=== PATIENT | female | born 1995 | race Caucasian/White ===

== ENCOUNTER 2020-11-13 07:55 | Inpatient (IN) ==
[2020-11-13] MEDS ORDERED: OXYTOCIN 30 UNITS/500 ML BAG IV PRN ×3 (08:32→22:20)
[2020-11-13] MEDS: LACTATED RINGER'S 1,000 ML IV PRN ×2 (09:15→14:17)
--- NOTE | 2020-11-13 13:08 | History & Physical Report ---
Date of Service November 13, 2020 Assessment & Plan (1) Encounter for induction of labor: 25 y/o at 40w0d who presents for eIOL for term . A pos. RI. GBS neg. GDM on insulin during . - category 1 tracing - s/p cervical ripening colunga on 11/12/20 - induction via pitocin, 2+2 - NPO. LR 125ml/hr - plans to use epidural. anesthesia consulted - continue routine care (2) Insulin controlled gestational diabetes mellitus (GDM) during : - POC glucose 86 this admission, acceptable - BSG q1h ordered - hold home regimen: 10u NPH qhs and SSI Aspart (8u w/ carb-containing meals, max TDD 30u/day) during day. Admission and Anticipated Discharge Date Admission Date: November 13, 2020 History of Present Illness Primary Care Provider: Faheem Arreola Marlena Almanza is a 25 y/o at 40w0d WGA w/ LANIE of 11/13/20 (via LMP) who presents for eIOL for term . s/p colunga cervical ripening on 11/12/20. is complicated by GDM (on insulin). Patient is also on Zoloft 100mg for anxiety/depression. + contractions; + movement; - fluid loss; - bloody show Had regular appointments with OB. Labs: (04/10/20) Blood type: A pos Antibody screen: neg Hg: pending (today) Hct: pending (today) WBC: pending (today) Plt: pending (today) Rubella: immune RPR: nonreactive Gonorrhea: not detected Chlamydia: not detected HIV: neg HbSAg: neg GBS: neg Labs Reviewed: first panorama--no result second panorama-low risk declined afp GDM w/ 28wk glucola (glucose dose 75g. 200H (70-179) at 1 hour. 154H (70-152) at 2 hours. 08/28/20) Allergies Allergy/AdvReac Type Severity Reaction Status Date / Time Penicillins Allergy Unknown Verified 11/10/20 16:14 bee venom protein (honey bee) AdvReac Swelling Verified 11/12/20 21:14 of Lip/Tongue/Throat Home Medications Medication Instructions Recorded Confirmed Type prenat.vits,jacqueline,[id number] 1 tab PO DAILY 04/03/20 11/13/20 History sertraline 100 mg tablet 100 mg PO DAILY 04/03/20 11/13/20 History acetone (urine) test #50 09/01/20 11/10/20 Rx blood-glucose meter #1 09/01/20 11/10/20 Rx lancets 33 gauge #150 ea 09/01/20 11/10/20 Rx insulin aspart U-100 100 unit/mL See Rx Instructions SUBCUT BID #15 09/08/20 11/13/20 Rx (3 mL) subcutaneous pen ml pen needle, diabetic 32 gauge x #150 ea 09/08/20 11/10/20 Rx 5/32" insulin NPH isoph U-100 human 100 10 unit SUBCUT HS #10 ml 09/12/20 11/13/20 Rx unit/mL subcutaneous suspension insulin syringe-needle U-100 0.3 #100 09/12/20 11/10/20 Rx mL 30 gauge x 1/2" blood sugar diagnostic #150 10/24/20 11/10/20 Rx ferrous sulfate [Iron (ferrous 325 mg PO DAILY 11/13/20 11/13/20 History sulfate)] Patient History Medical History Depression History of broken collarbone History of chicken pox History of fracture of fibula History of fracture of tibia Surgical History No history of previous surgery Family History (Updated 11/13/20 @ 13:16 by Tariq Escoto MD) Grandmother (Paternal) Colorectal cancer Grandfather (Paternal) Lung cancer Mother Endometriosis Sister Polycystic ovary syndrome Father Hypertension Diabetes Denies family history of Ovarian cancer Breast cancer Social History Smoking Status: Never smoker Second Hand Exposure: No; Do You Dip or Chew Tobacco: No; Hx Alcohol Use: No Hx Substance Use: No Preferred Language: Portuguese Communication Ability: Effective Fibrous Wallboard Inspector Required: No Beliefs That Will Affect Care: None marital status: marital status details: Inderjit Almanza (28) [phone] Current Living Situation: Spouse Current Living Situation Comment: Lives with and 2 dogs. current occupational status: employed current occupation: [employer] Other Information That Helps Us Care for You: No Feels Safe at Home: Yes Safety Concerns: Feels Safe At This Time Assistive Devices: None Review of Systems Denies fever, chills, sweats Denies shortness of breath, difficulty breathing, chest pain Denies breast pain. Denies dysuria. Denies headache or changes in vision. Denies nausea/vomiting. Denies numbness, tingling, weakness. Denies calf pain. Denies mood complaints. Physical Exam Physical Exam: General: Alert, oriented. No acute distress. Cardiac: Regular rate and rhythm, no murmurs/rubs/gallops. Respiratory: Clear to auscultation bilaterally, no wheezes/rales/rhonchi. No increased work of breathing. Symmetrical chest rise. No respiratory distress. Abdomen: Gravid Pelvic: Dilation 3.5cm; Effacement 75%; Station -[address] Andrade at 0845. Lower Extremities: Trace bilateral LE edema. No deep calf pain. Ochoa's negative bilaterally Results & Data ([facility]) Vital Signs (Past 12 Hours) Vital Signs Temp Pulse Resp BP 11/13/20 11:03 83 121/77 11/13/20 10:49 88 117/74 11/13/20 09:41 100 H 121/75 11/13/20 09:38 91 H 134/82 11/13/20 09:16 37.3 C 92 H 18 137/58 L 11/13/20 08:11 92 H 135/78 Code Status & VTE Plan Code Status full VTE Prophylaxis Plan VTE Prophylaxis will be ordered: No Monitoring External Monitor External FHT and external uterine monitors used; Category 1 tracing; moderate FHT variability. No late or variable decelerations. Tocodynamometer External toco: contractions q 2-3min. Supervising Physician Co-Signing Physician Notes Resident Physician Supervision Note: I interviewed and examined the patient. Discussed with Dr. Escoto and agree with findings and plan as documented in the note. Any exceptions or clarifications are listed here: with iup at 40 weeks. Induction for insulin requiring gdm. Last us showed efw >98% and AC>98%. Patient originally had induction for closer to 39 weeks but then her got covid and pushed back so he could be at the delivery. She is covid neg. Plan pitocin induction, epidural, arom. Discussed will not instrument this baby. Fetus category one. Documented By: Juliet Andrade MD, FACOG Resident Activity Tracking Resident Involvement: Resident Care Provided Care Provided: OB Delivery
[2020-11-13] MEDS ORDERED: ePHEDrine sulfate 50 MG/ML AMP ONE (13:59)
[2020-11-13] MEDS ORDERED: SODIUM CHLORIDE 0.9% INJ 10 ML VIAL ONE (14:00)
[2020-11-13] MEDS ORDERED: fentaNYL citrate 100 MCG/2 ML VIAL ONE (14:00)
[2020-11-13] MEDS ORDERED: BUPIVACAINE 0.25% 30 ML VIAL ONE (14:00)
[2020-11-13] MEDS ORDERED: fentaNYL 2MCG/ML ROPIVACAINE 1.25MG/ML 100 ML BAG EPI ONE (14:01)
--- NOTE | 2020-11-13 14:20 | Labor Progress Brief Note ---
Date of Service November 13, 2020 Subjective noting pain with contractions Assessment & Plan (1) Encounter for induction of labor: Admission and Anticipated Discharge Date Admission Date: November 13, 2020 Plan epidural, then arom . fetus reassuring. Physical Exam Constitutional: WD/WN, vitals as above Psychiatric: A+Ox3, euthymic affect Genitourinary: cx--deferred toco--q2min, pit at 6 efm--category one Results & Data ([facility]) Vital Signs (Past 12 Hours) Vital Signs Temp Pulse Resp BP 11/13/20 13:51 88 110/58 L 11/13/20 11:03 83 121/77 11/13/20 10:49 88 117/74 11/13/20 09:41 100 H 121/75 11/13/20 09:38 91 H 134/82 11/13/20 09:16 37.3 C 92 H 18 137/58 L 11/13/20 08:11 92 H 135/78 Coding Level of Care Code None Diagnoses Encounter for induction of labor Z34.90
[2020-11-13] MEDS ORDERED: NALOXONE HCL 0.4 MG/1 ML VIAL/CARP IV PRN (14:24)
[2020-11-13] MEDS ORDERED: ONDANSETRON INJ 2 MG/ML 2 ML VIAL IV PRN (14:24)
[2020-11-13] MEDS ORDERED: fentaNYL 2MCG/ML ROPIVACAINE 1.25MG/ML 100 ML BAG EPI PRN (14:24)
[2020-11-13] MEDS ORDERED: diphenhydrAMINE 50 MG/ML VIAL IV PRN (14:24)
[2020-11-13] MEDS ORDERED: NALOXONE HCL 1 MG in SODIUM CHLORIDE 0.9% 1000ML 1,000 ML IV PRN (14:24)
[2020-11-13] MEDS ORDERED: ePHEDrine sulfate 50 MG/ML AMP IV PRN (14:24)
--- NOTE | 2020-11-13 14:26 | Anesthesiology Consultation ---
Date of Service November 13, 2020 Assessment & Plan ASA ASA2 Proposed Anesthesia Anesthesia Type: Labor Epidural Risk / Benefits Reviewed With: PT / POA / Parent / Guardian, Accepts Plan and Informed Consent Obtained History Height/Weight Height: 5 ft 9 in Weight: 108.862 kg Allergies Allergy/AdvReac Type Severity Reaction Status Date / Time Penicillins Allergy Unknown Verified 11/10/20 16:14 bee venom protein (honey bee) AdvReac Swelling Verified 11/12/20 21:14 of Lip/Tongue/Throat Medications Home Medications Medication Instructions Recorded Confirmed Last Taken prenat.vits,jacqueline,[id number] 1 tab PO DAILY 04/03/20 11/13/20 11/12/20 08:00 sertraline 100 mg tablet 100 mg PO DAILY 04/03/20 11/13/20 11/12/20 08:00 acetone (urine) test #50 ea 09/01/20 11/10/20 Unknown blood-glucose meter #1 ea 09/01/20 11/10/20 Unknown lancets 33 gauge #150 ea 09/01/20 11/10/20 Unknown insulin aspart U-100 100 unit/mL See Rx Instructions SUBCUT BID #15 09/08/20 11/13/20 11/12/20 18:00 (3 mL) subcutaneous pen ml pen needle, diabetic 32 gauge x #150 ea 09/08/20 11/10/20 Unknown " insulin NPH isoph U-100 human 100 10 unit SUBCUT HS #10 ml 09/12/20 11/13/20 11/11/20 21:00 unit/mL subcutaneous suspension insulin syringe-needle U-100 0.3 #100 ea 09/12/20 11/10/20 Unknown mL 30 gauge x 1/2" blood sugar diagnostic #150 ea 10/24/20 11/10/20 Unknown ferrous sulfate [Iron (ferrous 325 mg PO DAILY 11/13/20 11/13/20 11/12/20 08:00 sulfate)] Active Medications Generic Name Dose Route Start Last Admin Trade Name Freq PRN Reason Stop Dose Admin Lactated Ringer's 1,000 mls @ 125 mls/hr 11/13/20 08:32 11/13/20 14:27 Lr IV 11/15/20 08:31 125 mls/hr .Q8H PRN Titration L&D Protocol Protocol Oxytocin 30 units in 500 mls @ 6 mls/hr 11/13/20 08:46 11/13/20 10:48 Pitocin IV 11/15/20 08:45 0.36 units/hr .Q24H PRN 6 mls/hr Labor Induction/Augmentation Titration Protocol 0.36 UNITS/HR Past Medical History Medical History Depression History of broken collarbone History of chicken pox History of fracture of fibula History of fracture of tibia Exercise / Class Metabolic Activity II 4-5 Yardwork/Stairs/Walk up hill Past Family History Family History Grandmother (Paternal) Colorectal cancer Grandfather (Paternal) Lung cancer Mother Endometriosis Sister Polycystic ovary syndrome Father Hypertension Diabetes Denies family history of Ovarian cancer Breast cancer Past Surgical History Surgical History No history of previous surgery Past Anesthesia History No Hx of Anesthesia Complications and No Family Hx of Anesthesia Complications History of PONV No Hx of PONV and No Hx of Motion Sickness Social History Smoking Status: Never smoker Do You Dip or Chew Tobacco: No Hx Alcohol Use: No Hx Substance Use: No substance use type: does not use Review of Systems denies fever/cough/ colds/ chest pain/ SOB/ ROLANDO denies ROLANDO Physical Exam Vital Signs Last Vital Signs Temp 37.3 C 11/13/20 09:16 Pulse 98 H 11/13/20 15:34 Resp 18 11/13/20 09:16 BP 121/77 11/13/20 15:34 Pulse Ox 96 11/13/20 15:34 ENMT Mouth: no TMJ abnormality and no dentition abnormality Thyromental Distance: > or= 3.5 Finger Breadths Mallampati Class: II Neck neck extension not limited Respiratory normal respiratory effort; no respiratory distress Auscultation: lungs clear to auscultation bilaterally Cardiovascular Rate/Rhythm: regular rate and regular rhythm Neurologic moves all extremities Psychiatric Orientation: alert and oriented x 3 Testing Laboratory Results 11/13/20 08:51 Blood Type A Positive 11/13/20 08:51 Antibody Screen NEGATIVE 11/13/20 08:51 11/13/20 11/13/20 11/13/20 15:08 12:42 09:47 POC Glucose 80 80 83
[2020-11-13 15:11] LABS: Basophils # (auto) 0.01 K/uL (0-0.2); Basophils % (auto) 0.1 %; Eosinophils # (auto) 0.04 K/uL (0-0.5); Eosinophils % (auto) 0.3 %; Hematocrit (blood only) 38.2 % (37-47); Hemoglobin 13.2 g/dL (12.0-16.0); Immature Granulocytes # (auto) 0.09 K/uL (0.00-0.02); Immature Granulocytes % (auto) 0.7 %; Lymphocytes # (auto) 1.63 K/uL (1.2-3.4); Lymphocytes % (auto) 12.9 %; Mean Corpuscular Hemoglobin 30.9 pg (25-34); Mean Corpuscular Hgb Conc 34.6 g/dL (32-36); Mean Corpuscular Volume 89.5 fL (80-100); Monocytes # (auto) 0.92 K/uL (0.11-0.59); Monocytes % (auto) 7.3 %; Neutrophils % (auto) 78.7 %; Platelet Count 174 K/uL (130-400); RDW Coefficient of Variation 16.9 % (11.5-14.5); RDW Standard Deviation 55.2 fL (36.4-46.3); Red Blood Count 4.27 M/uL (4.2-5.4); White Blood Count 12.59 K/uL (4.8-10.8)
--- NOTE | 2020-11-13 16:59 | Labor Progress Brief Note ---
Date of Service November 13, 2020 Subjective comfortable after epidural Assessment & Plan (1) Encounter for induction of labor: Admission and Anticipated Discharge Date Admission Date: November 13, 2020 Continue current mangement. Peds aware of mec. Category one strip. Physical Exam Constitutional: WD/WN, vitals as above Psychiatric: A+Ox3, euthymic affect Genitourinary: cx--5/90/-2 arom--green mec, copious toco--q2-3min, pit at 6 efm--125 with mod variablity, accels present, no decels Results & Data ([facility]) Vital Signs (Past 12 Hours) Vital Signs Temp Pulse Resp BP Pulse Ox 11/13/20 16:54 84 97 11/13/20 16:49 91 H 97 11/13/20 16:44 82 96 11/13/20 16:41 83 120/75 11/13/20 16:39 85 95 11/13/20 16:34 90 97 11/13/20 16:29 90 97 11/13/20 16:26 90 117/70 11/13/20 16:24 88 97 11/13/20 16:22 93 H 116/73 11/13/20 16:19 92 H 97 11/13/20 16:14 104 H 99 11/13/20 16:10 86 18 123/79 11/13/20 16:09 86 97 11/13/20 16:04 85 127/71 96 11/13/20 16:00 99 H 120/77 11/13/20 15:59 99 H 96 11/13/20 15:54 91 H 96 11/13/20 15:53 97 H 18 120/74 11/13/20 15:49 92 H 123/74 97 11/13/20 15:44 83 97 11/13/20 15:43 94 H 123/70 11/13/20 15:39 92 H 18 120/74 96 11/13/20 15:34 98 H 121/77 96 11/13/20 15:30 92 H 126/74 11/13/20 15:29 91 H 97 11/13/20 15:24 97 H 97 11/13/20 15:23 101 H 18 131/76 11/13/20 15:19 92 H 138/77 97 11/13/20 15:14 105 H 97 11/13/20 15:13 100 H 126/79 11/13/20 15:09 96 H 18 122/73 97 11/13/20 15:04 98 H 97 11/13/20 15:02 101 H 18 128/80 11/13/20 15:00 93 H 124/75 11/13/20 14:59 97 H 97 11/13/20 14:58 102 H 120/74 11/13/20 14:56 98 H 18 132/72 11/13/20 14:54 103 H 136/75 98 11/13/20 14:52 96 H 130/77 11/13/20 14:51 97 H 135/88 11/13/20 14:49 109 H 99 11/13/20 14:48 106 H 121/77 11/13/20 14:44 108 H 98 11/13/20 14:39 101 H 98 11/13/20 14:34 98 H 99 11/13/20 14:29 183 H 100 11/13/20 13:51 88 110/58 L 11/13/20 11:03 83 121/77 11/13/20 10:49 88 117/74 11/13/20 09:41 100 H 121/75 11/13/20 09:38 91 H 134/82 11/13/20 09:16 37.3 C 92 H 18 137/58 L 11/13/20 08:11 92 H 135/78 Coding Level of Care Code None Diagnoses Encounter for induction of labor Z34.90
--- NOTE | 2020-11-13 18:49 | Labor Progress Brief Note ---
Date of Service November 13, 2020 Subjective comfortable with epidural Assessment & Plan (1) Encounter for induction of labor: (2) Insulin controlled gestational diabetes mellitus (GDM) during : Admission and Anticipated Discharge Date Admission Date: November 13, 2020 continue current management. Recheck in one hour. If no change, plan iupc. Fetus category one. Physical Exam Constitutional: WD/WN, vitals as above Psychiatric: A+Ox3, euthymic affect Genitourinary: cx--6/100/-2 toco--q3-4, pit at 6 efm--120s with mod varibility, accels to 160s, no decels Results & Data ([facility]) Vital Signs (Past 12 Hours) Vital Signs Temp Pulse Resp BP Pulse Ox 11/13/20 18:44 85 99 11/13/20 18:43 79 136/81 11/13/20 18:39 91 H 99 11/13/20 18:34 88 99 11/13/20 18:29 87 98 11/13/20 18:28 82 125/76 11/13/20 18:27 82 135/78 11/13/20 18:24 85 99 11/13/20 18:19 83 98 11/13/20 18:14 86 98 11/13/20 18:13 93 H 126/79 11/13/20 18:10 18 11/13/20 18:09 86 98 11/13/20 18:04 87 97 11/13/20 17:59 89 97 11/13/20 17:57 37.1 C 86 18 109/65 98 11/13/20 17:54 88 98 11/13/20 17:49 87 97 11/13/20 17:44 75 95 11/13/20 17:42 75 108/62 11/13/20 17:39 76 96 11/13/20 17:34 77 95 11/13/20 17:29 74 94 11/13/20 17:27 77 107/61 11/13/20 17:24 78 95 11/13/20 17:19 77 95 11/13/20 17:14 79 95 11/13/20 17:12 77 110/57 L 11/13/20 17:10 18 11/13/20 17:09 82 96 11/13/20 17:04 78 95 11/13/20 16:59 83 96 11/13/20 16:58 82 102/59 L 11/13/20 16:54 84 97 11/13/20 16:49 91 H 97 11/13/20 16:44 82 96 11/13/20 16:41 83 120/75 11/13/20 16:39 85 95 11/13/20 16:34 90 97 11/13/20 16:29 90 97 11/13/20 16:26 90 117/70 11/13/20 16:24 88 97 11/13/20 16:22 36.5 C 89 18 116/73 97 11/13/20 16:19 92 H 97 11/13/20 16:14 104 H 99 11/13/20 16:10 86 18 123/79 11/13/20 16:09 86 97 11/13/20 16:04 85 127/71 96 11/13/20 16:00 99 H 120/77 11/13/20 15:59 99 H 96 11/13/20 15:54 91 H 96 11/13/20 15:53 97 H 18 120/74 11/13/20 15:49 92 H 123/74 97 11/13/20 15:44 83 97 11/13/20 15:43 94 H 123/70 11/13/20 15:39 92 H 18 120/74 96 11/13/20 15:34 98 H 121/77 96 11/13/20 15:30 92 H 126/74 11/13/20 15:29 91 H 97 11/13/20 15:24 97 H 97 11/13/20 15:23 101 H 18 131/76 11/13/20 15:19 92 H 138/77 97 11/13/20 15:14 105 H 97 11/13/20 15:13 100 H 126/79 11/13/20 15:09 96 H 18 122/73 97 11/13/20 15:04 98 H 97 11/13/20 15:02 101 H 18 128/80 11/13/20 15:00 93 H 124/75 11/13/20 14:59 97 H 97 11/13/20 14:58 102 H 120/74 11/13/20 14:56 98 H 18 132/72 05 14:54 103 H 136/75 98 11/13/20 14:52 96 H 130/77 11/13/20 14:51 97 H 135/88 11/13/20 14:49 109 H 99 11/13/20 14:48 106 H 121/77 11/13/20 14:44 108 H 98 11/13/20 14:39 101 H 98 11/13/20 14:34 98 H 99 11/13/20 14:29 183 H 100 11/13/20 13:51 88 110/58 L 11/13/20 11:03 83 121/77 11/13/20 10:49 88 117/74 11/13/20 09:41 100 H 121/75 11/13/20 09:38 91 H 134/82 11/13/20 09:16 37.3 C 92 H 18 137/58 L 11/13/20 08:11 92 H 135/78 Coding Level of Care Code None Diagnoses Encounter for induction of labor Z34.90 Insulin controlled gestational diabetes mellitus (GDM) during O24.414
[2020-11-13] MEDS ORDERED: DEXTROSE 5% 1,000 ML IV PRN (19:49)
--- NOTE | 2020-11-13 20:11 | Labor Progress Brief Note ---
Date of Service November 13, 2020 Subjective Noting some discomfort Assessment & Plan (1) Encounter for induction of labor: Admission and Anticipated Discharge Date Admission Date: November 13, 2020 will allow patient to labor down as vitals stable and fetus category one. Will likely begin pushing in one hour. Physical Exam Constitutional: WD/WN, vitals as above Psychiatric: A+Ox3, euthymic affect Genitourinary: cx--c/c/) toco--q2-3min, pit at 6, efm--125 with mod variability, accels to 150s, no decels Results & Data ([facility]) Vital Signs (Past 12 Hours) Vital Signs Temp Pulse Resp BP Pulse Ox 11/13/20 20:04 98 H 100 11/13/20 19:59 95 H 99 11/13/20 19:58 95 H 130/69 11/13/20 19:54 104 H 98 11/13/20 19:49 85 100 11/13/20 19:44 89 98 11/13/20 19:42 84 131/77 11/13/20 19:39 90 97 11/13/20 19:34 88 98 11/13/20 19:30 18 11/13/20 19:29 83 98 11/13/20 19:27 82 137/79 11/13/20 19:24 99 H 98 11/13/20 19:19 86 97 11/13/20 19:14 83 96 11/13/20 19:13 96 H 128/70 11/13/20 19:09 89 98 11/13/20 19:05 37.1 C 18 11/13/20 19:04 89 97 11/13/20 18:59 88 98 11/13/20 18:57 85 127/73 11/13/20 18:54 107 H 97 11/13/20 18:49 91 H 98 11/13/20 18:44 85 99 11/13/20 18:43 79 136/81 11/13/20 18:39 91 H 99 11/13/20 18:34 88 99 11/13/20 18:29 87 98 11/13/20 18:28 82 125/76 11/13/20 18:27 82 135/78 11/13/20 18:24 85 99 11/13/20 18:19 83 98 11/13/20 18:14 86 98 11/13/20 18:13 93 H 126/79 11/13/20 18:10 18 11/13/20 18:09 86 98 11/13/20 18:04 87 97 11/13/20 17:59 89 97 11/13/20 17:57 37.1 C 86 18 109/65 98 11/13/20 17:54 88 98 11/13/20 17:49 87 97 11/13/20 17:44 75 95 11/13/20 17:42 75 108/62 11/13/20 17:39 76 96 11/13/20 17:34 77 95 11/13/20 17:29 74 94 11/13/20 17:27 77 107/61 11/13/20 17:24 78 95 11/13/20 17:19 77 95 11/13/20 17:14 79 95 11/13/20 17:12 77 110/57 L 11/13/20 17:10 18 11/13/20 17:09 82 96 11/13/20 17:04 78 95 11/13/20 16:59 83 96 11/13/20 16:58 82 102/59 L 11/13/20 16:54 84 97 11/13/20 16:49 91 H 97 11/13/20 16:44 82 96 11/13/20 16:41 83 120/75 11/13/20 16:39 85 95 11/13/20 16:34 90 97 11/13/20 16:29 90 97 11/13/20 16:26 90 117/70 11/13/20 16:24 88 97 11/13/20 16:22 36.5 C 89 18 116/73 97 11/13/20 16:19 92 H 97 11/13/20 16:14 104 H 99 11/13/20 16:10 86 18 123/79 11/13/20 16:09 86 97 11/13/20 16:04 85 127/71 96 11/13/20 16:00 99 H 120/77 11/13/20 15:59 99 H 96 11/13/20 15:54 91 H 96 11/13/20 15:53 97 H 18 120/74 11/13/20 15:49 92 H 123/74 97 11/13/20 15:44 83 97 11/13/20 15:43 94 H 123/70 11/13/20 15:39 92 H 18 120/74 96 11/13/20 15:34 98 H 121/77 96 11/13/20 15:30 92 H 126/74 11/13/20 15:29 91 H 97 11/13/20 15:24 97 H 97 11/13/20 15:23 101 H 18 131/76 11/13/20 15:19 92 H 138/77 97 11/13/20 15:14 105 H 97 11/13/20 15:13 100 H 126/79 11/13/20 15:09 96 H 18 122/73 97 11/13/20 15:04 98 H 97 11/13/20 15:02 101 H 18 128/80 11/13/20 15:00 93 H 124/75 11/13/20 14:59 97 H 97 11/13/20 14:58 102 H 120/74 11/13/20 14:56 98 H 18 132/72 11/13/20 14:54 103 H 136/75 98 11/13/20 14:52 96 H 130/77 11/13/20 14:51 97 H 135/88 11/13/20 14:49 109 H 99 11/13/20 14:48 106 H 121/77 11/13/20 14:44 108 H 98 11/13/20 14:39 101 H 98 11/13/20 14:34 98 H 99 11/13/20 14:29 183 H 100 11/13/20 13:51 88 110/58 L 11/13/20 11:03 83 121/77 11/13/20 10:49 88 117/74 11/13/20 09:41 100 H 121/75 11/13/20 09:38 91 H 134/82 11/13/20 09:16 37.3 C 92 H 18 137/58 L 11/13/20 08:11 92 H 135/78 Coding Level of Care Code None Diagnoses Encounter for induction of labor Z34.90
[2020-11-13] MEDS ORDERED: Nursing to Pharmacy Communication SCH (20:30)
[2020-11-13] MEDS ORDERED: oxyCODONE/ACETAMINOPHEN 5mg/325mg TAB PO PRN (21:55)
[2020-11-13] MEDS ORDERED: ACETAMINOPHEN 325 MG TAB PO PRN (21:55)
--- NOTE | 2020-11-13 22:01 | Delivery Summary ---
Vaginal Delivery Summary Date of Service November 13, 2020 Pre-operative Diagnosis: at 40 weeks insulin requiring GDM lga infant. Post-operative Diagnosis: same meconium stained fluid Procedure: colunga for cervical ripening pitocin induction epidural arom second degree and right labial laceration and repair EBL: 400cc Anesthesia: epidural Procedure: The patient presented to labor and delivery for induction secondary to GDM. The colunga placed the night before had fallen out. She was favorable. pitocin induction started. She underwent an epidural and then once comfortable was arom for mec fluid. She then progressed to c/c/0 and labored down for one hour. The patient pushed for 6 contractions to deliver a viable female in minnie position. A loose nuchal cord x 1 was easily reduced and the rest of the was then delivered without difficulty. The nose and mouth were bulb suc tioned and the was placed in the maternal abdomen for drying and attention. Cord was clamped and cut at 1.5 min of life. Cord blood and segment obtained. Placenta delivered spontaneous, intact with a three vessel cord. Cervix/sulci/rectum were intact. A second degree perineal laceration and a right labial laceration were repaired in the normal standard fashion. Hemostasis obtained with dilute pitocin and fundal massage and im methergine. Apgars were 8/9. Mother and baby doing well at the end of the delivery. Vaginal Delivery Summary and 2nd Degree LAC [facility] Vaginal Delivery Charge Vaginal Delivery Codes: 58273 global code for the antepartum, delivery, and post- Delivery Type Details: and 2nd Degree LAC
[2020-11-13] MEDS ORDERED: DIPHTHERIA/TETANUS/PERTUSSIS 0.5 ML SYR/VIAL IM ONE (22:20)
[2020-11-13] MEDS ORDERED: SUPERCREAM 0.870% 15 GM JAR EXT PRN (22:20)
[2020-11-13] MEDS ORDERED: BENZOCAINE 20% AER SPR 82.5 GM CAN EXT PRN (22:20)
[2020-11-13] MEDS ORDERED: HYDROCORTISONE ACETATE 25 MG SUPP PR PRN (22:20)
[2020-11-13] MEDS ORDERED: bisacodyL 10 MG SUPP PR PRN (22:20)
[2020-11-13] MEDS ORDERED: METHYLERGONOVINE MALEATE 0.2 MG/ML AMP IM STA (22:29)
--- NOTE | 2020-11-13 23:25 | Anesthesia Procedure Note ---
Date of Service November 13, 2020 Anesthesia Post Epidural Note Vital Signs Vital Signs: Temp Pulse Resp BP Pulse Ox 36.8 C 114 H 18 123/74 97 11/13/20 21:51 11/13/20 23:16 11/13/20 22:53 11/13/20 23:16 11/13/20 21:49 Pain Intensity Left Hip: Pain Intensity: 0 Notes Mental Status: alert / awake / arousable and participated in evaluation Patient Amnestic to Procedure: Yes Nausea / Vomiting: adequately controlled Pain: adequately controlled Airway Patency, RR, SpO2: stable & adequate BP & HR: stable & adequate Hydration State: stable & adequate Anesthetic Complications: no major complications apparent and Pt Satisfied with anesthetic care
[2020-11-14] MEDS: IBUPROFEN 600 MG TAB PO PRN ×3 (04:27→21:20)
[2020-11-14 06:14] LABS: Hematocrit (blood only) 35.1 % (37-47); Hemoglobin 12.2 g/dL (12.0-16.0)
--- NOTE | 2020-11-14 06:50 | Obstetrical Progress Note ---
Date of Service <Tariq Escoto MD - Last Filed: 11/14/20 07:12> November 14, 2020 Assessment & Plan <Tariq Escoto MD - Last Filed: 11/14/20 07:12> (1) state: 25 y/o at 40w0d who is s/p on 11/13, PPD1. A pos. RI. GDM on insulin during . 2nd deg lac. - meeting PPD1 milestones - H/H reviewed, appropriate.Hb 12.2 - delivery was ~11pm last night. Hr in low 90s. will monitor clinically - continue routine care - tentative dispo 11/15 Subjective <Tariq Escoto MD - Last Filed: 11/14/20 07:12> Ambulation: ambulating normally Voiding: no voiding problems Passing Gas:: Yes Diet Tolerance:: regular diet Lochia:: Small Feeding Type:: breast feeding Current Pain Level(1-10): 3 Doing well. No complaints. Review of Systems Denies fever, chills, sweats Denies shortness of breath, chest pain, palpitations. Denies breast pain. Denies dysuria. Denies headache or changes in vision. Denies nausea/vomiting. Denies numbness, tingling, weakness. Denies calf pain. Denies mood complaints. Physical Exam <Tariq Escoto MD - Last Filed: 11/14/20 07:12> General: Alert, oriented. No acute distress. Cardiac: Regular rate and rhythm, no murmurs/rubs/gallops. Respiratory: Clear to auscultation bilaterally, no wheezes/rales/rhonchi. No respiratory distress. Abdomen: , soft, nontender. Uterus: Uterine fundus firm, palpable 1cm below umbilicus. Lower Extremities: Trace LE edema. No deep calf pain. Ochoa's negative bilaterally. Results & Data ([facility]) <Tariq Escoto MD - Last Filed: 11/14/20 07:12> Vital Signs (Past 12 Hours) Vital Signs Temp Pulse Pulse Pulse Resp BP BP 11/14/20 04:15 37.4 C 93 H 18 128/88 11/13/20 23:40 37.4 C 92 H 18 132/79 11/13/20 23:16 114 H 123/74 11/13/20 23:15 18 11/13/20 23:08 109 H 129/82 11/13/20 22:53 100 H 18 120/68 11/13/20 22:38 92 H 120/63 11/13/20 22:23 96 H 18 129/66 11/13/20 22:08 104 H 20 132/65 11/13/20 21:51 36.8 C 101 H 18 115/57 L 11/13/20 21:49 108 H 11/13/20 21:44 109 H 11/13/20 21:42 110 H 117/57 L 11/13/20 21:39 115 H 11/13/20 21:34 112 H 11/13/20 21:29 138 H 11/13/20 21:26 100 H 140/74 11/13/20 21:24 101 H 11/13/20 21:19 134 H 11/13/20 21:14 123 H 11/13/20 21:13 104 H 135/80 11/13/20 21:09 109 H 11/13/20 21:05 37.7 C H 11/13/20 21:04 91 H 11/13/20 21:00 20 11/13/20 20:59 95 H 11/13/20 20:57 93 H 119/68 11/13/20 20:54 95 H 11/13/20 20:49 103 H 11/13/20 20:44 98 H 11/13/20 20:42 95 H 117/71 11/13/20 20:39 88 11/13/20 20:34 87 11/13/20 20:30 18 11/13/20 20:29 90 11/13/20 20:26 86 119/69 11/13/20 20:24 89 11/13/20 20:19 89 11/13/20 20:14 101 H 11/13/20 20:13 100 H 133/72 11/13/20 20:09 97 H 11/13/20 20:04 98 H 11/13/20 19:59 95 H 11/13/20 19:58 95 H 130/69 11/13/20 19:54 104 H 11/13/20 19:49 85 11/13/20 19:44 89 11/13/20 19:42 84 131/77 11/13/20 19:39 90 11/13/20 19:34 88 05/24/21 19:30 18 11/13/20 19:29 83 11/13/20 19:27 82 137/79 11/13/20 19:24 99 H 11/13/20 19:19 86 11/13/20 19:14 83 11/13/20 19:13 96 H 128/70 11/13/20 19:09 89 11/13/20 19:05 37.1 C 18 11/13/20 19:04 89 11/13/20 18:59 88 11/13/20 18:57 85 127/73 11/13/20 18:54 107 H 11/13/20 18:49 91 H Pulse Ox 11/14/20 04:15 98 11/13/20 23:40 99 11/13/20 23:16 11/13/20 23:15 11/13/20 23:08 11/13/20 22:53 11/13/20 22:38 11/13/20 22:23 11/13/20 22:08 11/13/20 21:51 11/13/20 21:49 97 11/13/20 21:44 96 11/13/20 21:42 11/13/20 21:39 96 11/13/20 21:34 97 11/13/20 21:29 97 11/13/20 21:26 11/13/20 21:24 98 11/13/20 21:19 98 11/13/20 21:14 98 11/13/20 21:13 11/13/20 21:09 98 11/13/20 21:05 11/13/20 21:04 97 11/13/20 21:00 11/13/20 20:59 96 11/13/20 20:57 11/13/20 20:54 97 11/13/20 20:49 98 11/13/20 20:44 97 11/13/20 20:42 11/13/20 20:39 98 11/13/20 20:34 98 11/13/20 20:30 11/13/20 20:29 97 11/13/20 20:26 11/13/20 20:24 98 11/13/20 20:19 97 11/13/20 20:14 99 11/13/20 20:13 11/13/20 20:09 100 11/13/20 20:04 100 11/13/20 19:59 99 11/13/20 19:58 11/13/20 19:54 98 11/13/20 19:49 100 11/13/20 19:44 98 11/13/20 19:42 11/13/20 19:39 97 11/13/20 19:34 98 11/13/20 19:30 11/13/20 19:29 98 11/13/20 19:27 11/13/20 19:24 98 11/13/20 19:19 97 11/13/20 19:14 96 11/13/20 19:13 11/13/20 19:09 98 11/13/20 19:05 11/13/20 19:04 97 11/13/20 18:59 98 11/13/20 18:57 11/13/20 18:54 97 11/13/20 18:49 98 Medications Administered <Juliet Andrade MD, FACOG - Last Filed: 11/14/20 07:53> Co-Signing Physician Notes Resident Physician Supervision Note: I interviewed and examined the patient. Discussed with Dr. Escoto and agree with findings and plan as documented in the note. Any exceptions or clarifications are listed here: Doing well. Routine care. Likely home tomorrow as a . Documented By: Juliet Andrade MD, FACOG
[2020-11-14] MEDS: DOCUSATE SODIUM 100 MG CAP PO SCH ×2 (08:16→21:19)
[2020-11-14] MEDS: PRENATAL VITAMIN 1 TAB PO SCH (08:16)
[2020-11-14] MEDS ORDERED: bisacodyL 5 MG TABEC PO SCH (20:00)
--- NOTE | 2020-11-15 06:04 | Obstetrical Progress Note ---
Date of Service <Tariq Escoto MD - Last Filed: 11/15/20 07:11> November 15, 2020 Assessment & Plan <Tariq Escoto MD - Last Filed: 11/15/20 07:11> (1) state: 25 y/o at 40w0d who is s/p on 11/13, PPD2. A pos. RI. GDM on insulin during . 2nd deg lac. - meeting PPD1 milestones - 11/14 H/H reviewed, appropriate.Hb 12.2 - vitals reviewed. no tachycardai - continue routine care - dispo today. instructions reviewed. 6 wk f/u Subjective <Tariq Escoto MD - Last Filed: 11/15/20 07:11> Ambulation: ambulating normally Voiding: no voiding problems Passing Gas:: Yes Diet Tolerance:: regular diet Lochia:: Small Feeding Type:: breast feeding Current Pain Level(1-10): 2 Mild nausea w/ ambulation. Feels ready for home today. Review of Systems Denies fever, chills, sweats Denies shortness of breath, chest pain, palpitations. Denies breast pain. Denies dysuria. Denies headache or changes in vision. Denies nausea/vomiting. Denies numbness, tingling, weakness. Denies calf pain. Denies mood complaints. Physical Exam <Tariq Escoto MD - Last Filed: 11/15/20 07:11> General: Alert, oriented. No acute distress. Cardiac: Regular rate and rhythm, no murmurs/rubs/gallops. Respiratory: Clear to auscultation bilaterally, no wheezes/rales/rhonchi. No respiratory distress. Abdomen: , soft, nontender. Uterus: Uterine fundus firm, palpable at lvl of umbilicus, to the right Lower Extremities: Trace LE edema. No deep calf pain. Ochoa's negative b ilaterally. Results & Data ([facility]) <Tariq Escoto MD - Last Filed: 11/15/20 07:11> Vital Signs (Past 12 Hours) Vital Signs Temp Pulse Resp BP Pulse Ox 11/15/20 00:00 36.6 C 74 18 118/71 99 11/14/20 19:45 36.9 C 90 18 116/76 96 Medications Administered <Quique Reveles MD, FACOG - Last Filed: 11/15/20 07:17> Co-Signing Physician Notes Resident Physician Supervision Note: I interviewed and examined the patient. Discussed with Dr. Escoto and agree with findings and plan as documented in the note. Any exceptions or clarifications are listed here: [None] Documented By: Quique Reveles MD, FACOG
[2020-11-15] MEDS: IBUPROFEN 600 MG TAB PO PRN (06:12)
[2020-11-15] MEDS: DOCUSATE SODIUM 100 MG CAP PO SCH (07:35)
[2020-11-15] MEDS: PRENATAL VITAMIN 1 TAB PO SCH (07:35)
== END 2020-11-15 11:15 | disposition home or self-care (01) | DRG 807 ==
LOC: 4S1 07:55 → 4S2 23:36